=== PATIENT | female | born 1950 | race Caucasian/White ===

== ENCOUNTER 2021-09-26 11:15 | Inpatient (IN) | payer MEDICARE, OTHER ==
[~2021-09-26] VITALS: Ht 152.4 cm; Wt 108.2 kg
[2021-09-26 08:20] VITALS: BP 111/43
[2021-09-26 13:07] LABS: EOSINOPHILS # (AUTO) 0.1 X10'3 (0-0.9); EOSINOPHILS % (AUTO) 2.7 % (0-6); HEMATOCRIT 39.7 % (35.0-45.0); HEMOGLOBIN 13.2 g/dl (12.0-16.0); LYMPHOCYTES # (AUTO) 1.3 X10'3 (1.1-4.8); LYMPHOCYTES % (AUTO) 29.9 % (21-51); MEAN CORPUSCULAR HEMOGLOBIN 30.5 PG (27.0-31.0); MEAN CORPUSCULAR HGB CONC 33.2 g/dL (33.0-36.5); MEAN CORPUSCULAR VOLUME 92.1 FL (78-98); MEAN PLATELET VOLUME 7.5 FL (7.4-10.4); MONOCYTES # (AUTO) 0.3 X10'3 (0-0.9); MONOCYTES % (AUTO) 7.4 % (2-12); NEUTROPHILS # (AUTO) 2.6 X10'3 (1.8-7.7); PLATELET COUNT 206 X10'3 (140-440); RED BLOOD COUNT 4.31 X10'6 (4.20-5.60); RED CELL DISTRIBUTION WIDTH 12.9 % (11.5-14.5); WHITE BLOOD COUNT 4.4 X10'3 (4.5-11.0)
[2021-09-26 13:15] LABS: APTT 33 SECONDS (22-32)
[2021-09-26 13:25] LABS: ALANINE AMINOTRANSFERASE 20 U/L (12-78); ALBUMIN 3.9 G/DL (3.4-5.0); ALBUMIN/GLOBULIN RATIO 1.2 (1.1-1.5); ALKALINE PHOSPHATASE 85 IU/L (46-116); ANION GAP 11 (8-16); ASPARTATE AMINO TRANSFERASE 19 U/L (10-37); BILIRUBIN,TOTAL 0.4 MG/DL (0.1-1.0); BLOOD UREA NITROGEN 16 MG/DL (7-18); BUN/CREATININE RATIO 20.3 (6.6-38.0); CALCIUM 9.4 MG/DL (8.5-10.1); CHLORIDE 105 MMOL/L (99-107); CREATININE 0.79 MG/DL (0.40-0.90); GLUCOSE 91 MG/DL (70-104); POTASSIUM 4.1 MMOL/L (3.5-5.1); SODIUM 145 MMOL/L (135-145); TOTAL CARBON DIOXIDE 29.1 MMOL/L (24-32); TOTAL PROTEIN 7.2 G/DL (6.4-8.2); eGFR 72 ML/MIN
[2021-09-26] MEDS ORDERED: clopidogrel 300mg tablet PO ONE (14:05)
[2021-09-26] MEDS ORDERED: atorvastatin 20mg tablet PO ONE (14:30)
--- NOTE | 2021-09-26 14:30 | NUR ---
neuro/tele consult done
[2021-09-26] MEDS ORDERED: iohexol 350MG/ML 100ml bottle IV ONE (14:31)
--- NOTE | 2021-09-26 15:30 | NUR ---
informed dr. haas patient allergic to iodine. new order: cancel cta
[2021-09-26] MEDS ORDERED: mag hydrox/Alum hydrox/simeth 30ml oral suspension PO PRN (16:20)
[2021-09-26] MEDS ORDERED: magnesium hydroxide 30ml (MOM) UD suspension PO PRN (16:20)
[2021-09-26] MEDS ORDERED: acetaminophen 325mg tablet PO PRN ×2 (16:20)
[2021-09-26] MEDS ORDERED: morphine 2 MG/ML inj. syringe IV PRN ×2 (16:20)
[2021-09-26] MEDS ORDERED: HYDROcodone/acetaminophen 5mg/325mg tablet PO PRN (16:20)
[2021-09-26] MEDS ORDERED: ondansetron/PF 4mg/2ml inj IV PRN (16:20)
[2021-09-26 16:44] LABS: HEMOGLOBIN A1C 6.2 % (4.5-6.2)
[2021-09-26 16:45] LABS: CHOL/HDL RATIO 3.8 (0.00-4.99); CHOLESTEROL 261 MG/DL (0-200); HDL CHOLESTEROL 69 MG/DL (35-60); LDL CHOLESTEROL 141 MG/DL (50-100); TRIGLYCERIDES 169 MG/DL (20-135)
[2021-09-26] MEDS ORDERED: HYDR12.55 PO (16:46)
[2021-09-26] MEDS ORDERED: SIMV20TA PO (16:46)
[2021-09-26] MEDS ORDERED: GABA300C PO (16:46)
[2021-09-26] MEDS ORDERED: DULO-31 PO (16:46)
--- NOTE | 2021-09-26 16:47 | NUR ---
VASCULAR STUDY BEING DONE
[2021-09-26] MEDS ORDERED: GABA600T13 PO (17:19)
--- NOTE | 2021-09-26 19:22 | NUR ---
Patient has no deficits with swallowing and was able to eat dinner with no difficulty
[2021-09-26 20:00] VITALS: BP 113/51
[2021-09-26] MEDS: docusate sod 100mg capsule PO SCH (20:00)
[2021-09-26 22:00] VITALS: BP 112/50
[2021-09-27] VITALS (8 sets, daily range): BP systolic 110–126; BP diastolic 56–65
[2021-09-27 06:06] LABS: BASOPHILS # (AUTO) 0.1 X10'3 (0-0.2); BASOPHILS % (AUTO) 1.9 % (0-1); EOSINOPHILS # (AUTO) 0.1 X10'3 (0-0.9); EOSINOPHILS % (AUTO) 3.5 % (0-6); HEMATOCRIT 35.8 % (35.0-45.0); HEMOGLOBIN 12.1 g/dl (12.0-16.0); LYMPHOCYTES # (AUTO) 1.2 X10'3 (1.1-4.8); MEAN CORPUSCULAR HEMOGLOBIN 31.3 PG (27.0-31.0); MEAN PLATELET VOLUME 7.7 FL (7.4-10.4); MONOCYTES # (AUTO) 0.3 X10'3 (0-0.9); MONOCYTES % (AUTO) 9.2 % (2-12); NEUTROPHILS # (AUTO) 1.8 X10'3 (1.8-7.7); NEUTROPHILS % (AUTO) 50.4 % (42-75); PLATELET COUNT 181 X10'3 (140-440); RED BLOOD COUNT 3.89 X10'6 (4.20-5.60); RED CELL DISTRIBUTION WIDTH 12.9 % (11.5-14.5); WHITE BLOOD COUNT 3.5 X10'3 (4.5-11.0)
[2021-09-27 06:20] LABS: ALBUMIN 3.3 G/DL (3.4-5.0); ANION GAP 10 (8-16); BLOOD UREA NITROGEN 14 MG/DL (7-18); BUN/CREATININE RATIO 18.7 (6.6-38.0); CHLORIDE 106 MMOL/L (99-107); CHOL/HDL RATIO 3.9 (0.00-4.99); CHOLESTEROL 233 MG/DL (0-200); CREATININE 0.75 MG/DL (0.40-0.90); GLUCOSE 94 MG/DL (70-104); HDL CHOLESTEROL 60 MG/DL (35-60); LDL CHOLESTEROL 129 MG/DL (50-100); SODIUM 144 MMOL/L (135-145); TRIGLYCERIDES 170 MG/DL (20-135); eGFR 77 ML/MIN
[2021-09-27] MEDS: enoxaparin 40mg/0.4ml syringe SUBCUT SCH (09:28)
[2021-09-27] MEDS: docusate sod 100mg capsule PO SCH ×2 (09:29→20:00)
[2021-09-28 02:00] VITALS: BP 113/53
[2021-09-28 06:00] VITALS: BP 123/56
[2021-09-28 06:12] LABS: BASOPHILS # (AUTO) 0.1 X10'3 (0-0.2); BASOPHILS % (AUTO) 1.9 % (0-1); EOSINOPHILS # (AUTO) 0.1 X10'3 (0-0.9); EOSINOPHILS % (AUTO) 2.7 % (0-6); HEMATOCRIT 35.6 % (35.0-45.0); LYMPHOCYTES # (AUTO) 1.3 X10'3 (1.1-4.8); LYMPHOCYTES % (AUTO) 35.5 % (21-51); MEAN CORPUSCULAR HEMOGLOBIN 30.8 PG (27.0-31.0); MEAN CORPUSCULAR HGB CONC 33.6 g/dL (33.0-36.5); MEAN CORPUSCULAR VOLUME 91.6 FL (78-98); MEAN PLATELET VOLUME 7.6 FL (7.4-10.4); MONOCYTES # (AUTO) 0.3 X10'3 (0-0.9); MONOCYTES % (AUTO) 8.9 % (2-12); NEUTROPHILS # (AUTO) 1.9 X10'3 (1.8-7.7); PLATELET COUNT 178 X10'3 (140-440); RED BLOOD COUNT 3.88 X10'6 (4.20-5.60); WHITE BLOOD COUNT 3.6 X10'3 (4.5-11.0)
[2021-09-28 06:29] LABS: ALBUMIN 3.3 G/DL (3.4-5.0); ANION GAP 10 (8-16); BLOOD UREA NITROGEN 17 MG/DL (7-18); BUN/CREATININE RATIO 20.5 (6.6-38.0); CALCIUM 8.9 MG/DL (8.5-10.1); CHLORIDE 106 MMOL/L (99-107); CREATININE 0.83 MG/DL (0.40-0.90); GLUCOSE 93 MG/DL (70-104); POTASSIUM 3.9 MMOL/L (3.5-5.1); SODIUM 145 MMOL/L (135-145); TOTAL CARBON DIOXIDE 28.7 MMOL/L (24-32); eGFR 68 ML/MIN
[2021-09-28] MEDS: docusate sod 100mg capsule PO SCH (07:56)
[2021-09-28] MEDS: enoxaparin 40mg/0.4ml syringe SUBCUT SCH (07:57)
[2021-09-28 08:00] VITALS: BP 124/62
[2021-09-28 11:00] VITALS: BP 133/73
[2021-09-28] MEDS ORDERED: gabapentin 300mg capsule PO SCH (21:00)
[2021-09-29] MEDS ORDERED: duloxetine 30mg CAPSULE.DR PO SCH (08:00)
[2021-09-29] MEDS ORDERED: atorvastatin 10mg tablet PO SCH (08:00)
[2021-09-29] MEDS ORDERED: HYDROchlorothiazide 12.5mg capsule PO SCH (08:00)
== END 2021-09-28 15:33 | disposition home or self-care (01) | DRG 69 ==
LOC: ER 11:16 → ED HOLD 16:19 → EDBEDREQ 18:34 → PCU 3S 20:30
PROVIDERS: ADMIT Internal Medicine; ATTEND Internal Medicine
DX: G45.9 Transient cerebral ischemic attack, unspecified (principal); R47.01 Aphasia; R55 Syncope and collapse; E78.5 Hyperlipidemia, unspecified; M25.562 Pain in left knee; I10 Essential (primary) hypertension; R53.1 Weakness; R26.2 Difficulty in walking, not elsewhere classified; H53.9 Unspecified visual disturbance; Z82.3 Family history of stroke; Z90.710 Acquired absence of both cervix and uterus; Z88.6 Allergy status to analgesic agent; Z86.73 Personal history of transient ischemic attack (TIA), and cerebral infarction without residual deficits; Z90.49 Acquired absence of other specified parts of digestive tract; Z91.041 Radiographic dye allergy status; Z88.5 Allergy status to narcotic agent; Z88.1 Allergy status to other antibiotic agents
CPT/HCPCS: 36415; 70450; 71045; 80048; 80053; 80061; 83036; 83880; 85025; 85610; 85651; 85730; 87081; 93005; 93306; 93880; 97161; 97530; 99285; G0378; J1650; Q9967